=== PATIENT | male | born 1980 | race African-American/Black ===

== ENCOUNTER 2020-06-10 02:37 | Emergency (ER) | payer OTHER ==
[~2020-06-10] VITALS: Ht 195.6 cm; Wt 109.3 kg
[2020-06-10 02:54] VITALS: Ht 195.6 cm; Wt 109.3 kg
[2020-06-10 04:26] LABS: BASOPHIL % 0.4 % (0.2-1.5); PLATELET COUNT 213 x10^3mcL (152-348); RED CELL DISTRIBUTION WIDTH 13.5 % (12.1-16.2)
[2020-06-10 04:36] LABS: CALCIUM 9.1 mg/dL (8.5-10.1); CARBON DIOXIDE 28.6 mmol/L (21-32); CHLORIDE SERUM 103 mmol/L (98-107); CREATININE SERUM 1.2 mg/dL (0.7-1.3); GFR1 > 60 mL/min; GLUCOSE SERUM 97 mg/dL (74-106); POTASSIUM SERUM 3.6 mmol/L (3.5-5.1); SODIUM SERUM 142 mmol/L (136-145)
[2020-06-10 04:44] LABS: ALBUMIN 4.3 g/dL (3.4-5.0); ALKALINE PHOSPHATASE 68 U/L (46-116); ALT/SGPT 45 U/L (16-63); AST/SGOT 33 U/L (15-37); BILIRUBIN TOTAL 0.7 mg/dL (0.20-1.00); TOTAL PROTEIN, SERUM 7.7 g/dL (6.4-8.2)
[2020-06-10 04:55] LABS: AMPHETAMINE QUAL UR POSITIVE (See below)
[2020-06-10 09:52] VITALS: BP 154/78
== END 2020-06-10 09:52 | disposition home or self-care (01) ==
LOC: ED 02:37
PROVIDERS: Emergency Medicine
DX: F15.10 Other stimulant abuse, uncomplicated (principal); R44.0 Auditory hallucinations
CPT/HCPCS: G0480; J7030